=== PATIENT | male | born 1985 | race Caucasian/White ===

== ENCOUNTER 2016-03-31 21:16 | Emergency (ER) | payer OTHER ==
[~2016-03-31] VITALS: Ht 177.8 cm; Wt 109.0 kg
[~2016-03-31 21:16] MED LIST changes: -AMOX875T2 PO; -LSNP10T PO; -LSNP20T PO; -OXYC10TA7 PO
[2016-03-31] MEDS ORDERED: LSNP20T PO (21:53)
[2016-03-31] MEDS ORDERED: LSNP10T PO (21:53)
[2016-03-31] MEDS ORDERED: ED- oxyCODONE/ACETAMINOPHEN 5MG-325MG (PERCOCET) 8 TABLETS/BTL PO ONE (22:10)
[2016-03-31] MEDS ORDERED: LORazepam 2 MG/ML (ATIVAN) 1 ML VIAL IM ONE (22:10)
[2016-03-31 22:36] VITALS: BP 133/82
[2016-06-14] MEDS ORDERED: AMOX875T2 PO (16:28)
[2016-06-14] MEDS ORDERED: OXYC10TA7 PO (16:28)
== END 2016-03-31 22:30 | disposition home or self-care (01) ==
LOC: ED 21:19
DX: G40.009 Localization-related (focal) (partial) idiopathic epilepsy and epileptic syndromes with seizures of localized onset, not intractable, without status epilepticus (principal)
CPT/HCPCS: 96372; 99283; J2060; 99282

== ENCOUNTER → 2016-03-31 | Outpatient (CLI) | payer SELFPAY ==
[~2016-03-31] MED LIST: ACET-2264 PO; ALBU8.5H6 INH; AMOX875T2 PO; AZIT250T81 PO; CEPH500T PO; CHLO500T2 PO; CLON1TAB3 PO; FLUT1AER IH; GBPN600T PO; HYDR-3811 PO; IBUP200C11 PO; LSNP10T PO; LSNP20T PO; NAPR220T76 PO; ONDN4T PO; OXYC10TA7 PO; OXYC1TAB87 PO; RANI150T15 PO; TOPI25TA36 PO; TRAM-25 PO; TRM50T PO
== END ==
LOC: EMS 21:06
DX: Z53.20 Procedure and treatment not carried out because of patient's decision for unspecified reasons (principal)

== ENCOUNTER → 2016-06-13 | Outpatient (CLI) | payer OTHER ==
[~2016-06-13] MED LIST changes: +AMOX875T2 PO; +LSNP10T PO; +LSNP20T PO; +OXYC10TA7 PO
--- NOTE | 2016-06-14 08:53 | Diagnostic Imaging Report ---
EXAMINATION: Mandible at 9:18 AM INDICATION: Right-sided jaw pain Four views were obtained. There are no prior studies available for comparison. There is no fracture, dislocation or acute bony abnormality evident. The soft tissues are unremarkable. IMPRESSION: 1. There is no evidence for an acute bony abnormality. 2. If clinical concern regarding an underlying abnormality persists, then CT of the facial bones would be recommended. Dictated by: Dictated on workstation # [id number]
== END ==
LOC: RAD 16:32
PROVIDERS: ATTEND Family Medicine
DX: K08.89 Other specified disorders of teeth and supporting structures (principal)
CPT/HCPCS: 70110

== ENCOUNTER 2016-06-14 16:13 | Emergency (ER) | payer OTHER ==
[~2016-06-14] VITALS: Ht 177.8 cm; Wt 114.0 kg
[2016-06-14 16:31] VITALS: BP 128/79
[2016-06-14] MEDS ORDERED: LIDOCAINE 2% (XYLOCAINE) 20 ML VIAL INJ ONE (16:45)
[2016-06-14] MEDS ORDERED: BUPIVACAINE 0.5% (MARCAINE) 10 ML VIAL INJ ONE (16:45)
== END 2016-06-14 17:17 | disposition home or self-care (01) ==
LOC: ED 16:15
DX: K08.89 Other specified disorders of teeth and supporting structures (principal)
CPT/HCPCS: 64400; 99283; J2001; 99282